=== PATIENT | male | born 1995 ===

== ENCOUNTER 2017-05-04 12:27 | Emergency (ER) | payer OTHER ==
[2017-05-04] MEDS ORDERED: Albuterol 0.083% Inhal Sol (2.5 mg/3 mL) UD INH STA (12:50)
[2017-05-04] MEDS ORDERED: Albuterol 0.083% Inhal Sol (2.5 mg/3 mL) UD ONE (12:52)
--- NOTE | 2017-05-04 12:54 | C.PDOC ---
History Of Present Illness ASTHMA EXAC X 1 WEEK. RELIEF W MDI BUT PERSIST DRY COUGH. +POST TUSSIVE VOMITING. 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 denies: Dyspnea, Fever, Chest Pain Additional History Per: Patient Past Medical History Reviewed: Historical Data, Nursing Documentation, Vital Signs Vital Signs: Last Vital Signs Temp 98.5 F 05/04/17 12:38 Pulse 102 H 05/04/17 12:38 Resp 18 05/04/17 13:04 BP 136/78 05/04/17 12:38 Pulse Ox 95 05/04/17 14:00 - Medical History PMH: Asthma Surgical History: No Surg Hx Family History: States: No Known Family Hx - Social History Hx Alcohol Use: Yes Hx Substance Use: Yes - Immunization History Hx Tetanus Toxoid Vaccination: No Hx Influenza Vaccination: No Hx Pneumococcal Vaccination: No Review Of Systems Constitutional: Negative for: Fever, Chills Cardiovascular: Negative for: Chest Pain Respiratory: Positive for: Shortness of Breath. Negative for: SOB with Excertion Gastrointestinal: Positive for: Vomiting (post-tussive) Physical Exam - Physical Exam Appears: Non-toxic, Other (mild distress) Skin: Normal Color Head: Atraumatic, Normacephalic Eye(s): bilateral: Normal Inspection, PERRL, EOMI Ear(s): Bilateral: Normal Nose: Normal Oral Mucosa: Moist Throat: Normal, No Erythema, No Exudate Neck: Supple Cardiovascular: Rhythm Regular (sinus tachycardia) Respiratory: No Rales, Wheezing (occasional expiratory wheezing), Other (no retractions; there is active dry cough) ED Course And Treatment O2 Sat by Pulse Oximetry: 95 (RA) Pulse Ox Interpretation: Normal - Radiology CXR: Interpreted by Me CXR Interpretation: Yes: No Acute Disease Progress - Re-Evaluation Re-evaluation Note: 05/04/17 13:48 +POST TUSSIVE VOMITING, CO BACK PAIN FROM EXCESSIVE COUGHING. ? VOMITED PREDNISONE AND TESSALON Disposition Counseled Patient/Family Regarding: Studies Performed, Diagnosis, Need For Followup, Rx Given, Smoking Cessation - Disposition Referrals: YOUR,PMD [Other] Disposition Time: 14:00 Condition: STABLE Prescriptions: Albuterol HFA [Ventolin HFA 90 mcg/actuation (8 g)] 1 puff IH Q4 #1 inhaler Benzonatate [Tessalon Perles] 200 mg PO TID PRN #15 sgl PRN Reason: Cough Ibuprofen [Motrin] 600 mg PO Q6 #30 tab predniSONE [Prednisone] 60 mg PO DAILY #12 tab Instructions: Asthma (ED), Acute Bronchitis (ED) Forms: [employer] (Italian), Work Excuse Print Language: KOREAN - Clinical Impression Clinical Impression: Bronchitis, Asthma exacerbation - Scribe Statement The provider has reviewed the documentation as recorded by the Lucero Martinez Provider Attestation: All medical record entries made by the Lucaibmary ann were at my direction and personally dictated by me. I have reviewed the chart and agree that the record accurately reflects my personal performance of the history, physical exam, medical decision making, and the department course for this patient. I have also personally directed, reviewed, and agree with the discharge instructions and disposition. Physician Patient Turnover Patient Signed Over To: Mitul Molina Handoff Comments: DEVONTE MORENO, DISPO
[2017-05-04] MEDS ORDERED: Albuterol-Ipratrop 3 mg / 0.5 (3 ml) UD ONE (13:19)
[2017-05-04] MEDS ORDERED: Albuterol-Ipratrop 3 mg / 0.5 (3 ml) UD INH STA (13:21)
--- NOTE | 2017-05-04 14:08 | RAD ---
HISTORY: cough COMPARISON: None available. TECHNIQUE: Chest PA and lateral FINDINGS: LUNGS: No focal consolidation. Please note that chest x-ray has limited sensitivity for the detection of pulmonary masses. PLEURA: No significant pleural effusion identified. No definite pneumothorax . CARDIOVASCULAR: The cardiomediastinal silhouette appears within normal limits of size. OSSEOUS STRUCTURES: No acute osseous abnormality identified. VISUALIZED UPPER ABDOMEN: Unremarkable. OTHER FINDINGS: None. IMPRESSION: No focal consolidation, significant pleural effusion, or definite pneumothorax identified.
[2017-05-04 14:27] VITALS: BP 131/79; PULSE 89; RESP 20; TEMP 98.4; O2SAT 96
== END 2017-05-04 14:26 | disposition home or self-care (01) ==
LOC: C.ER 12:27
DX: J45.901 Unspecified asthma with (acute) exacerbation (principal)
CPT/HCPCS: 71020; 96372; 99284; J1885

== ENCOUNTER 2017-06-05 12:56 | Emergency (ER) | payer OTHER ==
[2017-06-05 13:33] VITALS: BP 151/73; PULSE 100; RESP 18; TEMP 98.6; O2SAT 97
--- NOTE | 2017-06-05 14:42 | RAD ---
HISTORY: cough, x3 week COMPARISON: Chest x-ray performed 05/04/17 TECHNIQUE: Chest PA and lateral FINDINGS: LUNGS: No focal consolidation. Please note that chest x-ray has limited sensitivity for the detection of pulmonary masses. PLEURA: No significant pleural effusion identified. No definite pneumothorax . CARDIOVASCULAR: The cardiomediastinal silhouette appears within normal limits of size. OSSEOUS STRUCTURES: No acute osseous abnormality identified. VISUALIZED UPPER ABDOMEN: Unremarkable. OTHER FINDINGS: None. IMPRESSION: No focal consolidation, significant pleural effusion, or definite pneumothorax identified.
[2017-06-05] MEDS ORDERED: Albuterol-Ipratrop 3 mg / 0.5 (3 ml) UD INH STA (14:55)
--- NOTE | 2017-06-05 15:12 | C.PDOC ---
History Of Present Illness 21 yr old male presents to the ER with complaints of non productive cough for the past 5 days. Patient states the cough is persistent and has tired OTC medications with no relief. Denies fever, chills, chest pain, SOB, nausea, vomiting, abdominal pain, hemoptysis, weakness or numbness. Time Seen by Provider: 06/05/17 13:53 Chief Complaint (Nursing): Cough, Cold, Congestion History Per: Patient History/Exam Limitations: no limitations Onset/Duration Of Symptoms: Days (5 days) Past Medical History Reviewed: Historical Data, Nursing Documentation, Vital Signs Vital Signs: Last Vital Signs Temp 98.6 F 06/05/17 13:30 Pulse 100 H 06/05/17 13:30 Resp 18 06/05/17 13:30 BP 151/73 H 06/05/17 13:30 Pulse Ox 97 06/05/17 15:32 - Medical History PMH: Asthma Family History: States: No Known Family Hx - Social History Hx Alcohol Use: Yes (denies) Hx Substance Use: Yes (denies) - Immunization History Hx Tetanus Toxoid Vaccination: No Hx Influenza Vaccination: No Hx Pneumococcal Vaccination: No Review Of Systems Except As Marked, All Systems Reviewed And Found Negative. Constitutional: Negative for: Fever, Chills Cardiovascular: Negative for: Chest Pain Respiratory: Positive for: Cough (non productive). Negative for: Shortness of Breath Gastrointestinal: Negative for: Nausea, Vomiting, Abdominal Pain, Hematemesis Neurological: Negative for: Weakness, Numbness Physical Exam - Physical Exam Appears: Non-toxic, No Acute Distress Skin: Warm, Dry, No Rash Head: Atraumatic, Normacephalic Ear(s): Bilateral: Normal Oral Mucosa: Moist Throat: Normal, No Erythema, No Exudate, No Drooling, Other (persistent cough) Cardiovascular: Rhythm Regular, No Murmur Respiratory: Normal Breath Sounds, No Rales, No Rhonchi, No Stridor, No Wheezing Extremity: Normal ROM, No Swelling Neurological/Psych: Oriented x3, Normal Speech, Normal Motor, Normal Sensation ED Course And Treatment O2 Sat by Pulse Oximetry: 97 (RA) Pulse Ox Interpretation: Normal - Radiology CXR: Interpreted by Me CXR Interpretation: Yes: No Acute Disease. No: Infiltrates Medical Decision Making Medical Decision Making: Old records reviewed, the patient was last seen in the ED on 05/04/17 for asthma and bronchitis, patient improved and was discharged home. PLAN: * CXR * Albuterol IH * Claritin PO * Prednisone pO Patient is requesting a Duoneb because it will make him feels better, but there is no wheezing on PE. On re-exam, the patient reports improvement of symptoms. Lungs are CTA, heart is RRR, abdomen is soft, non-tender and the patient is tolerating PO well. Ambulatory in the ED with steady gait. Follow up with the medical doctor/clinic within 1-2 days. Return if worsened. Disposition - Disposition Referrals: [facility] [Outside] Disposition: HOME/ ROUTINE Disposition Time: 15:31 Condition: GOOD Additional Instructions: Follow up with the medical doctor/clinic within 1-2 days. Return if worsened. 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 - Scribe Statement The provider has reviewed the documentation as recorded by the Scribe Estrella Palacios All medical record entries made by the Scribe were at my direction and personally dictated by me. I have reviewed the chart and agree that the record accurately reflects my personal performance of the history, physical exam, medical decision making, and the department course for this patient. I have also personally directed, reviewed, and agree with the discharge instructions and disposition.
[2017-06-05] MEDS ORDERED: Albuterol-Ipratrop 3 mg / 0.5 (3 ml) UD ONE (15:24)
== END 2017-06-05 16:04 | disposition home or self-care (01) ==
LOC: C.ER 12:56
DX: J40 Bronchitis, not specified as acute or chronic (principal); F17.210 Nicotine dependence, cigarettes, uncomplicated

== ENCOUNTER 2017-10-16 18:50 | Emergency (ER) | payer SELFPAY ==
[2017-10-16 19:38] VITALS: RESP 18
--- NOTE | 2017-10-16 20:25 | C.PDOC ---
History Of Present Illness 22-year-old male with a past medical history of three incidents of bronchitis earlier this year presents to the emergency department with complaints of a sore throat, fever, and body aches persisting for the past three days. Patient states he has had a non-productive cough, epigastric discomfort, and post-nasal drip. Patient denies shortness of breath, vomiting, or change in bowel habits. Chief Complaint (Nursing): Abdominal Pain History Per: Patient History/Exam Limitations: no limitations Onset/Duration Of Symptoms: Days (3) Current Symptoms Are (Timing): Still Present Location Of Pain/Discomfort: Epigastric Quality Of Discomfort: "Pain" Associated Symptoms: Fever, Other (body aches, non-productive cough, post-nasal drip, no shortness of breath or change in bowel habits). denies: Vomiting Past Medical History Reviewed: Historical Data, Nursing Documentation, Vital Signs Vital Signs: Last Vital Signs Temp 98 F 10/16/17 22:04 Pulse 78 10/16/17 22:04 Resp 18 10/16/17 22:04 BP 120/73 10/16/17 22:04 Pulse Ox 98 10/16/17 22:04 - Medical History PMH: Asthma Surgical History: No Surg Hx Family History: States: No Known Family Hx - Social History Hx Alcohol Use: Yes Hx Substance Use: Yes - Immunization History Hx Tetanus Toxoid Vaccination: No Hx Influenza Vaccination: No Hx Pneumococcal Vaccination: No Review Of Systems Constitutional: Positive for: Fever, Malaise ENT: Positive for: Other (post-nasal drip) Respiratory: Positive for: Cough (non-productive). Negative for: Shortness of Breath Gastrointestinal: Positive for: Abdominal Pain (epigastric). Negative for: Vomiting, Other (change in bowel habits) Physical Exam - Physical Exam Appears: Non-toxic, No Acute Distress Skin: Warm, Dry Head: Atraumatic, Normacephalic Eye(s): bilateral: Normal Inspection Oral Mucosa: Moist Throat: Erythema, Exudate, Other (mildly inflamed) Neck: Supple Lymphatic: Other (submandibular lymphadenitis) Cardiovascular: Rhythm Regular Respiratory: Normal Breath Sounds, No Rales, No Rhonchi, No Wheezing Gastrointestinal/Abdominal: Normal Exam, Soft, No Tenderness, No Guarding, No Rebound Neurological/Psych: Oriented x3, Normal Speech, Normal Cognition ED Course And Treatment O2 Sat by Pulse Oximetry: 97 (RA) Pulse Ox Interpretation: Normal Medical Decision Making Medical Decision Making: Plan: Motrin 800mg PO Throat Culture Influenza AB Rapid Strep Group Impression: Pharyngitis vs. Tonsillitis vs. Influenza Disposition - Disposition Referrals: [facility] [Outside] Disposition: ELOPEMENT - ER ONLY Disposition Time: 05:02 Condition: GOOD Prescriptions: Azithromycin [Zithromax] 250 mg PO DAILY #6 tab Hydrocodone/Acetaminophen [Lortab Elixir 300 mg/15 ml-10 mg/15 ml 473 ml] 15 ml PO QID PRN #150 ml PRN Reason: Pain, Mild (1-3) Instructions: Viral Pharyngitis Forms: [employer] (Honduran) Print Language: YI - Clinical Impression Clinical Impression: Pharyngitis - Scribe Statement The provider has reviewed the documentation as recorded by the Scribe (Sandip Lopez) All medical record entries made by the Scribe were at my direction and personally dictated by me. I have reviewed the chart and agree that the record accurately reflects my personal performance of the history, physical exam, medical decision making, and the department course for this patient. I have also personally directed, reviewed, and agree with the discharge instructions and disposition.
[2017-10-16 21:27] LABS: INFLUENZA A B NEGATIVE FOR FLU A/B (NEGATIVE)
[2017-10-16 22:05] VITALS: BP 120/73; PULSE 78; TEMP 98
[2017-10-17 05:03] VITALS: O2SAT 97
== END 2017-10-16 22:04 | disposition left against medical advice (07) ==
LOC: C.ER 18:50
DX: J02.9 Acute pharyngitis, unspecified (principal)

== ENCOUNTER 2018-01-01 12:27 | Emergency (ER) | payer OTHER ==
[2018-01-01 12:34] VITALS: BP 119/73; PULSE 67; TEMP 98; O2SAT 97
--- NOTE | 2018-01-01 12:52 | C.PDOC ---
History Of Present Illness 22 y/o male presents to ED for evaluation of abrasion to right thigh sustained while at work prior to arrival. 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 Patient denies weakness or numbness. Time Seen by Provider: 01/01/18 12:41 Chief Complaint (Nursing): Abnormal Skin Integrity History Per: Patient History/Exam Limitations: no limitations Onset/Duration Of Symptoms: Hrs Current Symptoms Are (Timing): Still Present Past Medical History Reviewed: Historical Data, Nursing Documentation, Vital Signs Vital Signs: Last Vital Signs Temp 98 F 01/01/18 12:29 Pulse 67 01/01/18 12:29 Resp 20 01/01/18 13:24 BP 119/73 01/01/18 12:29 Pulse Ox 97 01/01/18 14:00 - Medical History PMH: Asthma Surgical History: No Surg Hx Family History: States: No Known Family Hx - Social History Hx Alcohol Use: Yes Hx Substance Use: Yes - Immunization History Hx Tetanus Toxoid Vaccination: No Hx Influenza Vaccination: No Hx Pneumococcal Vaccination: No Review Of Systems Musculoskeletal: Positive for: Leg Pain Skin: Negative for: Rash, Bruising Neurological: Negative for: Weakness, Numbness Physical Exam - Physical Exam Appears: Non-toxic, No Acute Distress Skin: Warm, Dry, Other (7cm superficial abrasion to right thigh, 1cm of distal abrasion deeper wound ) Head: Atraumatic, Normacephalic Eye(s): bilateral: Normal Inspection Oral Mucosa: Moist Extremity: Normal ROM, Capillary Refill (<2 seconds), No Deformity, No Swelling Neurological/Psych: Oriented x3, Normal Speech, Normal Motor, Normal Sensation ED Course And Treatment O2 Sat by Pulse Oximetry: 97 (RA) Pulse Ox Interpretation: Normal Laceration - Laceration Repair right lateral thigh Wound Length (In cm): 7 Description Of Wound: Linear, Clean Wound Cleansed With: Betadine, Sterile Saline Wound Examination: Irrigated With Saline, No FB With Wound Exploration Wound Closure: Steri Strips (2) Wound Complexity: Simple Medical Decision Making Medical Decision Making: Wound irrigated with NS, no deep laceration or deep structure involvement requiring laceration repair. Steri-strips applied. 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 - Scribe Statement The provider has reviewed the documentation as recorded by the Lucaibmary ann Potts All medical record entries made by the Lucero were at my direction and personally dictated by me. I have reviewed the chart and agree that the record accurately reflects my personal performance of the history, physical exam, medical decision making, and the department course for this patient. I have also personally directed, reviewed, and agree with the discharge instructions and disposition.
[2018-01-01] MEDS ORDERED: Tdap Vaccine 0.5 ml Vial (10-64 yrs) IM ONE ×2 (12:53→12:57)
[2018-01-01 13:24] VITALS: RESP 20
== END 2018-01-01 13:24 | disposition home or self-care (01) ==
LOC: C.ER 12:27
DX: S70.311A Abrasion, right thigh, initial encounter (principal); W31.89XA Contact with other specified machinery, initial encounter; Y92.89 Other specified places as the place of occurrence of the external cause; Y99.0 Civilian activity done for income or pay